=== PATIENT | male | born 1995 | race African-American/Black ===

== ENCOUNTER → 2016-06-03 12:52 | Emergency (ER) | payer OTHER | END | disposition home or self-care (01) | LOC: CFTX 12:52 | DX: S01.81XA Laceration without foreign body of other part of head, initial encounter (principal); J45.909 Unspecified asthma, uncomplicated; F17.290 Nicotine dependence, other tobacco product, uncomplicated; W22.8XXA Striking against or struck by other objects, initial encounter; Y92.830 Public park as the place of occurrence of the external cause | CPT/HCPCS: 12013; 99283 ==